=== PATIENT | male | born 1940 | race African-American/Black ===

== ENCOUNTER 2020-07-02 23:19 | Emergency (ER) | payer OTHER ==
[~2020-07-02] VITALS: Ht 177.8 cm; Wt 86.2 kg
[2020-07-02] MEDS ORDERED: SODIUM CHLORIDE 0.9% 1,000 ML IV ONE (23:45)
[2020-07-03 00:08] LABS: HEMATOCRIT. 23.2 % (42.0-52.0); MEAN CORPUSCULAR HEMOGLOBIN 20.1 pg (28.0-32.0); MEAN CORPUSCULAR VOLUME 66.8 fL (80.0-94.0); PLATELET 275 x1000/uL (130-400); RED BLOOD CELL COUNT 3.47 mill/uL (4.7-6.1); RED CELL DISTRIBUTION WIDTH 19.6 % (11.6-14.6)
[2020-07-03 00:14] LABS: CHLORIDE 112 mEq/L (98-107)
[2020-07-03 00:17] LABS: ETHANOL BLOOD < 10 mg/dL
[2020-07-03 00:20] LABS: LDL CHOLESTEROL 73 mg/dL (5-100)
[2020-07-03 00:21] LABS: PROTHROMBIN TIME 10.1 sec (9.6-11.0)
[2020-07-03] MEDS ORDERED: IOHEXOL-350 100 ML BOTTLE ONE (00:35)
[2020-07-03 01:52] LABS: PLATELET ESTIMATE NORMAL
[2020-07-03 03:52] LABS: CLARITY URINE CLEAR (CLEAR); COLOR URINE YELLOW (YELLOW); KETONES URINE NEGATIVE (NEGATIVE); LEUKOCYTE ESTERASE URINE 2+ (NEGATIVE); NITRITE URINE POSITIVE (NEGATIVE); OCCULT BLOOD URINE NEGATIVE (NEGATIVE); PROTEIN URINE 2+ (NEGATIVE); SPECIFIC GRAVITY URINE 1.034 (1.005-1.030); UROBILINOGEN URINE 0.2 E.U./dL (0.2-1.0)
[2020-07-03 04:07] LABS: *AMPHETAMINES SCREEN URINE NEGATIVE (NEGATIVE); *BARBITURATES SCREEN URINE NEGATIVE (NEGATIVE); *BENZODIAZEPINES SCREEN URINE NEGATIVE (NEGATIVE)
[2020-07-03 04:08] LABS: *COCAINE SCREEN URINE NEGATIVE (NEGATIVE); CANNABINOID URINE SCREEN NEGATIVE (NEGATIVE); METHADONE URINE SCREEN NEGATIVE (NEGATIVE); OPIATES URINE SCREEN NEGATIVE (NEGATIVE); PHENCYCLIDINE URINE SCREEN NEGATIVE (NEGATIVE)
[2020-07-03 05:00] VITALS: BP 177/67
[2020-07-03] MEDS ORDERED: DEXTROSE 5% WATER 1,000 ML IV SCH (08:00)
[2020-07-03] MEDS ORDERED: DEXTROSE 50% WATER 50ML SYRINGE IV ONE (08:00)
== END 2020-07-03 09:14 | disposition short-term general hospital (02) ==
LOC: ER 23:19 → CANBEDREQ 07-03 08:42 → ER 07-03 09:14
DX: G45.9 Transient cerebral ischemic attack, unspecified (principal); F17.200 Nicotine dependence, unspecified, uncomplicated; E11.9 Type 2 diabetes mellitus without complications; I10 Essential (primary) hypertension
CPT/HCPCS: 36415; 70450; 70496; 71045; 80053; 80305; 80320; 81003; 82962; 83721; 84484; 85025; 85610; 87077; 87086; 87186; 93005; 96361; 96365; 96375; 99285; J7030; Q9967; G0480

== ENCOUNTER 2020-07-10 10:17 | Emergency (ER) | payer OTHER ==
[~2020-07-10] VITALS: Ht 182.9 cm; Wt 80.0 kg
[2020-07-10 11:22] LABS: HEMATOCRIT. 32.2 % (42.0-52.0); HEMOGLOBIN. 10.1 g/dL (14.0-18.0); MEAN CORPUSCULAR HEMOGLOBIN 22.6 pg (28.0-32.0); MEAN CORPUSCULAR VOLUME 71.9 fL (80.0-94.0); MEAN PLATELET VOLUME 9.4 fl (7.4-10.4); PLATELET 230 x1000/uL (130-400); RED BLOOD CELL COUNT 4.48 mill/uL (4.7-6.1)
[2020-07-10 11:27] LABS: CHLORIDE 105 mEq/L (98-107)
[2020-07-10] MEDS ORDERED: SODIUM CHLORIDE 0.9% 1,000 ML IV ONE (11:45)
[2020-07-10] MEDS ORDERED: ASPIRIN 325MG EC TABLET PO ONE (11:45)
[2020-07-10 11:50] LABS: PLATELET ESTIMATE NORMAL
[2020-07-10 13:08] VITALS: BP 140/67
== END 2020-07-10 15:05 | disposition short-term general hospital (02) ==
LOC: ER 10:17 → CANBEDREQ 15:59
DX: E11.649 Type 2 diabetes mellitus with hypoglycemia without coma (principal); E11.65 Type 2 diabetes mellitus with hyperglycemia; E11.22 Type 2 diabetes mellitus with diabetic chronic kidney disease; N18.9 Chronic kidney disease, unspecified; Z86.73 Personal history of transient ischemic attack (TIA), and cerebral infarction without residual deficits
CPT/HCPCS: 36415; 71045; 80053; 82962; 84484; 85025; 93005; 96360; 99285; J7030

== ENCOUNTER 2021-10-08 07:27 | Emergency (ER) | payer OTHER ==
[~2021-10-08] VITALS: Ht 172.7 cm; Wt 70.0 kg
[2021-10-08 08:15] LABS: HEMATOCRIT. 26.2 % (42.0-52.0); HEMOGLOBIN. 8.8 g/dL (14.0-18.0); MEAN CORPUSCULAR HEMOGLOBIN 29.8 pg (28.0-32.0); MEAN CORPUSCULAR VOLUME 88.9 fL (80.0-94.0); MEAN PLATELET VOLUME 9.3 fl (7.4-10.4); PLATELET 214 x1000/uL (130-400); RED BLOOD CELL COUNT 2.95 mill/uL (4.7-6.1); RED CELL DISTRIBUTION WIDTH 17.8 % (11.6-14.6)
[2021-10-08 08:21] LABS: CHLORIDE 114 mEq/L (98-107)
[2021-10-08 08:53] LABS: PLATELET ESTIMATE NORMAL
[2021-10-08] MEDS ORDERED: ASPIRIN 325MG EC TABLET PO ONE (11:45)
[2021-10-08] MEDS ORDERED: CEFTRIAXONE 1 G PREMIX 50 ML IV ONE (11:45)
[2021-10-08] MEDS ORDERED: DEXTROSE 50% WATER 50ML SYRINGE IV NR (12:15)
[2021-10-08] MEDS ORDERED: HYDRALAZINE HCL 100MG TABLET PO NR (12:15)
[2021-10-08] MEDS ORDERED: DILTIAZEM HCL 180MG CAPSULE CD 24HR PO NR (13:00)
[2021-10-08 16:22] VITALS: BP 178/71
[2021-10-08] MEDS ORDERED: HYDRALAZINE 20MG/ML VIAL IV ONE (17:45)
== END 2021-10-08 17:42 | disposition short-term general hospital (02) ==
LOC: ER 07:36 → CANBEDREQ 17:58
DX: E11.649 Type 2 diabetes mellitus with hypoglycemia without coma (principal); R79.89 Other specified abnormal findings of blood chemistry; R77.8 Other specified abnormalities of plasma proteins; K80.50 Calculus of bile duct without cholangitis or cholecystitis without obstruction; I10 Essential (primary) hypertension; Z20.822 Contact with and (suspected) exposure to COVID-19; Z86.73 Personal history of transient ischemic attack (TIA), and cerebral infarction without residual deficits
CPT/HCPCS: 36415; 71045; 74176; 76705; 80053; 82248; 82962; 83605; 83690; 84145; 84484; 85025; 87040; 87426; 93005; 96365; 96366; 96375; 99291; J0360; J0696

== ENCOUNTER 2021-10-21 15:46 | Emergency (ER) | payer OTHER ==
[~2021-10-21] VITALS: Ht 182.9 cm; Wt 90.0 kg
[2021-10-21 16:58] LABS: CHLORIDE 107 mEq/L (98-107)
[2021-10-21 16:59] LABS: HEMOGLOBIN. 7.2 g/dL (14.0-18.0); MEAN CORPUSCULAR VOLUME 88.1 fL (80.0-94.0); MEAN PLATELET VOLUME 10.6 fl (7.4-10.4); PLATELET 180 x1000/uL (130-400); RED CELL DISTRIBUTION WIDTH 15.8 % (11.6-14.6)
[2021-10-21 17:48] LABS: PLATELET ESTIMATE NORMAL
[2021-10-21 19:10] VITALS: BP 122/52
[2021-10-21] MEDS ORDERED: DEXTROSE 50% WATER 50ML SYRINGE IV ONE (19:30)
== END 2021-10-21 19:47 | disposition short-term general hospital (02) ==
LOC: ER 15:46
DX: N17.9 Acute kidney failure, unspecified (principal); E11.649 Type 2 diabetes mellitus with hypoglycemia without coma; R41.82 Altered mental status, unspecified; I10 Essential (primary) hypertension; Z86.73 Personal history of transient ischemic attack (TIA), and cerebral infarction without residual deficits; Z20.822 Contact with and (suspected) exposure to COVID-19
CPT/HCPCS: 36415; 71045; 80053; 82962; 84484; 85025; 87426; 93005; 96374; 99291